=== PATIENT | male | born 1955 | race American Indian/Alaskan Native ===

== ENCOUNTER 2016-05-14 11:41 | Outpatient (CLI) | payer BC ==
--- NOTE | 2016-05-14 14:34 | XRay Report ---
CHEST 2 VIEWS: INDICATION: Dyspnea. COMPARISON: 04/11/2008 FINDINGS: PA and lateral chest radiographs suggest mild exaggerated cardiomediastinal silhouette/possible mild cardiomegaly. Increased perihilar bronchovascular prominence as well, more so on the right and towards the lung base. No dense focal consolidation, large pleural effusions or overt CHF, however. Slight fluid or thickening along the fissures may though be noted. Possible osteopenia and slight thoracic spine degenerative changes. CONCLUSION: Slight cardiomegaly and early cardiopulmonary fluid overload may be correlated for clinically in an appropriate setting. No overt CHF. I phoned the above results to Dr. Cruz, 2:15 PM, 05/14/2016. Thank you for the opportunity to participate in this patient's care.
== END 2016-05-14 11:42 | disposition home or self-care (01) ==
LOC: XRAY 11:41
PROVIDERS: ATTEND Internal Medicine
DX: I51.7 Cardiomegaly (principal); M47.894 Other spondylosis, thoracic region
CPT/HCPCS: 71020

== ENCOUNTER 2019-12-22 06:01 | Day surgery (SDC) | payer BC ==
[2019-12-21 09:48] LABS: Hematocrit 44.3 % (35.5-45.6); Hemoglobin 14.9 gm/dl (11.8-15.2); Mean Corpuscular HGB Conc 34 % (32-34); Mean Corpuscular Volume 93 fl (84-94); Platelet Count 301 K/mm3 (140-440); Red Blood Count 4.75 M/mm3 (3.65-5.03); Red Cell Distribution Width 14.2 % (13.2-15.2)
--- NOTE | 2019-12-21 10:04 | Anesthesia Consultation ---
Anesthesia Consult and Med Hx Date of service: 12/22/19 - Airway Anesthetic Teeth Evaluation: Dentures (full upper and lower) ROM Head & Neck: Adequate Mental/Hyoid Distance: Adequate Mallampati Class: Class III Intubation Access Assessment: Possibly Difficult - Pulmonary Exam CTA: Yes - Cardiac Exam Cardiac Exam: RRR - Pre-Operative Health Status ASA Pre-Surgery Classification: ASA3 Proposed Anesthetic Plan: General - Pulmonary Hx Smoking: Yes (20pk yr hx) Hx Respiratory Symptoms: No Hx Sleep Apnea: No (ISAAK PRE SCREEN HIGH RISK) - Cardiovascular System Hx Hypertension: Yes (well controlled on current regimen) Hx Heart Attack/AMI: No (hx CHF 2yrs ago; >4mets functional status, no signs/symptoms decompensation) Hx Percutaneous Transluminal Coronary Angioplasty (PTCA): No Hx Cardia Arrhythmia: No Hx Pacemaker: No Hx Internal Defibrillator: No - Central Nervous System CVA: No - Gastrointestinal Hx Gastroesophageal Reflux Disease: No - Endocrine Hx Renal Disease: No Hx Liver Disease: No Hx Non-Insulin Dependent Diabetes: Yes (diet controlled) Hx Thyroid Disease: No - Other Systems Hx Substance Use: Yes (THC 2-3 times per week) Hx Cancer: Yes (hx prostate ca) Hx Obesity: No - Additional Comments Anesthesia Medical History Comments: No hx anesthetic complications. Will attempt to retrieve most recent cardiology records from [facility] (last saw mail deliverer 7 months ago) however patient appears clinical compensated on exam today.
[2019-12-21 10:28] LABS: Alanine Aminotransferase 14 units/L (7-56); Albumin 3.5 g/dL (3.9-5); BUN/Creatinine Ratio 6; Blood Urea Nitrogen 8 mg/dL (9-20); Calcium 8.9 mg/dL (8.4-10.2); Hemolysis Index 18
[~2019-12-22 06:01] MED LIST: LACTATED RINGERS 1,000 ML IV SCH; MIDAZOLAM 2 MG/2 ML INJ IV NR
--- NOTE | 2019-12-22 07:21 | Anesthesia Day of Surgery ---
Anesthesia Day of Surgery - Day of Surgery Patient Examined: Yes Patient H&P Reviewed: Yes Patient is NPO: Yes Beta Blockers: Yes
[2019-12-22] MEDS ORDERED: ceFAZolin/STERILE WATER 2 GM/20 ML SYRINGE IV NR (08:35)
[2019-12-22] MEDS ORDERED: LIDOCAINE MPF (2%) 20 MG/1 ML VIAL 5 ML ONE (08:44)
[2019-12-22] MEDS ORDERED: fentaNYL 100 MCG/2 ML INJ ONE (08:44)
[2019-12-22] MEDS ORDERED: dexAMETHasone 20 MG/5 ML VIAL ONE (08:44)
[2019-12-22] MEDS ORDERED: PHENYLEPHRINE/NS 1,000 MCG/10 ML SYRINGE (OR USE) IV ONE (08:44)
[2019-12-22] MEDS ORDERED: GLYCOPYRROLATE 0.4 MG/2 ML INJ ONE (08:44)
[2019-12-22] MEDS ORDERED: ONDANSETRON 4 MG/2 ML INJ ONE (08:44)
[2019-12-22] MEDS ORDERED: propofoL 200 MG/20 ML VIAL IV ONE (08:44)
[2019-12-22] MEDS ORDERED: WATER FOR IRRIG STERILE 2000 ML IR ONE (09:15)
[2019-12-22] MEDS ORDERED: fentaNYL 100 MCG/2 ML INJ IV PRN (09:30)
--- NOTE | 2019-12-22 09:50 | Operative Report ---
PREOPERATIVE DIAGNOSES: Hematuria, previous prostate cancer, artificial sphincter. POSTOPERATIVE DIAGNOSES: Hematuria, previous prostate cancer, artificial sphincter. PROCEDURE: Flexible cystoscopy, bladder biopsy, retrograde, right, attempted left. SURGEON: Aleksey Farias MD. ANESTHESIA: General. FINDINGS: This is a gentleman who has had urinary sphincter for incontinence with prostate cancer for many years. He presented with hematuria. I had not seen him for about 7 years. He has had radiation. He now presents for cystoscopy. DESCRIPTION OF PROCEDURE: The patient was brought to the operating table. Following induction of anesthesia, placed in lithotomy position, prepped and draped in usual sterile fashion. The sphincter was immediately deactivated. There was no urethral discharge. Flexible cystoscopy showed the sphincter to be fully enclosed. There is no erosion. We got past the cuff without difficulty into wide open bladder neck. There were telangiectasias from the radiation, a small erythema, which was biopsied. We tried to do a retrograde with the whistle tip. The dye went up the lower right ureter, but I did not want to push it or damage the ureter or start with wires because I did not want to damage the sphincter. There was clear efflux from each side. The patient tolerated the procedure well. We did not need to leave the catheter. The sphincter was reactivated, brought to recovery room in stable condition. JOB# [id number] DONYA/SORAYA
--- NOTE | 2019-12-22 10:03 | Discharge Summary ---
Short Stay Discharge Plan Activity: other (no straining ) Weight Bearing Status: Full Weight Bearing Diet: low fat, low cholesterol, low salt Special Instructions: other (inc fluids ) Follow up with: DEEP MIR MD [Primary Care Provider] - 7 Days HANNY DUNLAP MD [Staff Physician] - 7 Days Forms: Outpatient Surgery DC Inst.
--- NOTE | 2019-12-22 10:04 | Post Operative Note ---
Date of procedure: 12/22/19 Pre-op diagnosis: hematuria Post-op diagnosis: same Findings: telangiectasia Procedure: cysto bx Anesthesia: GETA Surgeon: HANNY DUNLAP Estimated blood loss: none Pathology: list (bladder) Specimen disposition: to lab Condition: stable Disposition: PACU
--- NOTE | 2019-12-22 10:21 | Post Anesthesia Evaluation ---
- Post Anesthesia Evaluation Patient Participated: Yes Airway Patent: Yes Stable Respiratory Function: Yes Nausea/Vomiting: No Temp > 96.8F: Yes Pain Manageable: Yes Adequeate Hydration: Yes Anesthesia Complications: No
[2019-12-22 10:43] VITALS: BP 119/84
--- NOTE | 2019-12-22 11:23 | Fluoroscopy Report ---
FLUOROSCOPY RETROGRADE UROGRAPHY HISTORY: Hematuria FINDINGS: Fluoroscopy was provided by radiology during retrograde urography by the urologist. The uro logist apparently attempted a right retrograde pyelogram which was unsuccessful. Please correlate wit h the procedural report. Fluoroscopy time: 0.4 minutes Fluoroscopic images: 0 Signer Name: Chava Whitley Jr, MD Signed: 12/22/2019 11:19 AM Workstation Name: [id number]
== END 2019-12-22 11:00 | disposition home or self-care (01) ==
LOC: OR 06:01
PROVIDERS: ATTEND Urology
DX: R31.9 Hematuria, unspecified (principal); Z11.59 Encounter for screening for other viral diseases; E11.9 Type 2 diabetes mellitus without complications; I11.0 Hypertensive heart disease with heart failure; I50.9 Heart failure, unspecified; E78.00 Pure hypercholesterolemia, unspecified; Z98.890 Other specified postprocedural states; Z85.46 Personal history of malignant neoplasm of prostate; Z96.89 Presence of other specified functional implants; Z79.899 Other long term (current) drug therapy; Z79.82 Long term (current) use of aspirin; Z91.041 Radiographic dye allergy status; Z98.52 Vasectomy status; Z86.2 Personal history of diseases of the blood and blood-forming organs and certain disorders involving the immune mechanism
CPT/HCPCS: 36415; 52204; 74420; 80053; 82962; 85027; 88112; 88305; 88342; A4217; C1758; J1100; J2370; J2405; J2704; J3010; J7120; Q9967; U0003

== ENCOUNTER 2020-07-08 18:20 | Emergency (ER) | payer BC ==
[2020-07-08] MEDS ORDERED: SODIUM CHLORIDE 0.9% 500 ML 500 ML IV ONE (18:38)
[2020-07-08] MEDS ORDERED: SODIUM CHLORIDE 0.9% 1000 ML 1,000 ML IV ONE ×2 (18:53→20:25)
--- NOTE | 2020-07-08 18:53 | Emergency Department Report ---
ED Syncope HPI - General Chief Complaint: Syncope Stated Complaint: LOW BLOOD PRESSURE Time Seen by Provider: 07/08/20 18:29 Source: patient, family ( Mrs. Hinton per phone), EMS, old records Exam Limitations: no limitations - History of Present Illness Initial Comments: Chief complaint "I passed out twice." HPI: This is a 65-year-old male with history of hypertension, diet-controlled diabetes mellitus, CHF, prostate cancer in remission status post radiation/TURP who presents with syncope. On Thursday patient ate black beans which was delivered to his home. On Thursday he developed cramping in vomiting. These vomiting cramping of the abdomen did not resolve until Thursday. He felt much better. Today he took his blood pressure medication. He drinks wine. He smoke s marijuana. He felt sweaty and dizzy on 2 occasions. On the both instances he had brief loss of consciousness. 2 syncopal episodes. Upon EMS arrival, blood pressure was low. His is a nurse. He and his both feel that he has been dehydrated from food poisoning. Likely from the food delivery on Thursday. He denies any preceding chest pain, palpitations. He takes several hypertensive medications. He does not take anticoagulation. No history of heart attack. Patient stated that passing out episode happened once before when he took his new blood pressure medication. Patient states that this time that he feels much better after receiving IV fluid. I reviewed electronic medical record. Patient was admitted in 2013 for syncope. Echocardiogram obtained August 07, 2013: Findings at that time trace mitral regurgitation, mild concentric LVH, systolic function normal, ejection fraction 55 to 60%, abnormal left ventricular diastolic filling Timing/Prior Episodes: remote history Precipitating Factors: Positive: lightheadedness Context: standing Loss of Consciousness: brief (seconds) Current Symptoms: back to normal - Related Data Allergies/Adverse Reactions: Allergies Iodinated Contrast Media Allergy (Verified 12/16/19 09:38) Itching Home Medications: Ambulatory Orders Aspirin [Adult Aspirin] 81 mg PO DAILY 12/16/19 AtorvaSTATin [Lipitor] 40 mg PO QHS 12/16/19 Docusate Sodium [Colace] 100 mg PO BID 12/16/19 Furosemide [Lasix TAB] 40 mg PO QDAY 12/16/19 Hydralazine HCl 50 mg PO DAILY 12/16/19 Losartan [Cozaar] 100 mg PO QDAY 12/16/19 Potassium Citrate [Potassium Citrate ER] 20 meq PO DAILY 12/16/19 amLODIPine 10 mg PO DAILY 12/16/19 carvediloL [Coreg] 25 mg PO BID 12/16/19 Ondansetron [Zofran Odt] 4 mg PO Q8HR PRN #10 tab.rapdis 07/08/20 ED Review of Systems ROS: Stated complaint: LOW BLOOD PRESSURE Other details as noted in HPI Comment: All other systems reviewed and negative Constitutional: denies: fever, malaise Respiratory: denies: cough, shortness of breath Cardiovascular: denies: chest pain, palpitations Gastrointestinal: nausea, vomiting ED Past Medical Hx - Past Medical History Previous Medical History?: Yes Hx Hypertension: Yes (well controlled on current regimen) Hx Heart Attack/AMI: No (hx CHF 2yrs ago; >4mets functional status, no signs/symptoms decompensation) Hx Congestive Heart Failure: Yes (NOT RECENT) Hx Diabetes: Yes (NO MEDS- DIET CONTROLLED) Hx Liver Disease: No Hx Renal Disease: No Hx Tuberculosis: Yes (POSITIVE SKIN TEST.TOOK TX, NEG CXR -21 YRS AGO) Hx HIV: No - Surgical History Past Surgical History?: Yes Hx Pacemaker: No Hx Internal Defibrillator: No Additional Surgical History: Prostectomy, inguinal hernia repair X3 - Social History Smoking Status: Current Every Day Smoker Substance Use Type: Alcohol, Marijuana - Medications Home Medications: Home Medications Medication Instructions Recorded Confirmed Last Taken Type Aspirin [Adult Aspirin] 81 mg PO DAILY 12/16/19 12/22/19 12/15/19 09:00 History AtorvaSTATin [Lipitor] 40 mg PO QHS 12/16/19 12/22/19 12/21/19 20:00 History Docusate Sodium [Colace] 100 mg PO BID 12/16/19 12/22/19 12/21/19 18:00 History Furosemide [Lasix TAB] 40 mg PO QDAY 12/16/19 12/22/19 12/21/19 09:00 History Hydralazine HCl 50 mg PO DAILY 12/16/19 12/22/19 12/22/19 05:00 History Losartan [Cozaar] 100 mg PO QDAY 12/16/19 12/22/19 12/22/19 05:00 History Potassium Citrate [Potassium 20 meq PO DAILY 12/16/19 12/16/19 Unknown History Citrate ER] amLODIPine 10 mg PO DAILY 12/16/19 12/22/19 12/22/19 05:00 History carvediloL [Coreg] 25 mg PO BID 12/16/19 12/22/19 12/22/19 05:00 History Ondansetron [Zofran Odt] 4 mg PO Q8HR PRN #10 tab.rapdis 07/08/20 Unknown Rx ED Physical Exam - General Limitations: No Limitations General appearance: alert, in no apparent distress, other (Appears well, appears comfortable, nontoxic) - Head Head exam: Present: atraumatic, normocephalic - Eye Eye exam: Present: normal appearance - ENT ENT exam: Present: mucous membranes moist - Neck Neck exam: Present: normal inspection, full ROM - Respiratory Respiratory exam: Present: normal lung sounds bilaterally. Absent: respiratory distress, wheezes, rales, stridor - Cardiovascular Cardiovascular Exam: Present: regular rate, normal rhythm, normal heart sounds. Absent: systolic murmur, diastolic murmur, rubs, gallop - GI/Abdominal GI/Abdominal exam: Present: soft, normal bowel sounds. Absent: distended, tenderness - Rectal Rectal exam: Present: deferred - Extremities Exam Extremities exam: Present: normal inspection - Back Exam Back exam: Present: normal inspection - Neurological Exam Neurological exam: Present: alert, oriented X3 - Psychiatric Psychiatric exam: Present: normal affect, normal mood - Skin Skin exam: Present: warm, dry, intact, normal color. Absent: rash ED Course Vital Signs 07/08/20 07/08/20 07/08/20 18:30 18:35 18:36 Temperature 97.5 F L 97.5 F L Pulse Rate 75 75 Respiratory 16 17 17 Rate Blood Pressure 130/95 Blood Pressure 130/95 [Right] O2 Sat by Pulse 97 97 97 Oximetry 07/08/20 07/08/20 19:00 19:30 Temperature Pulse Rate 68 67 Respiratory 12 16 Rate Blood Pressure Blood Pressure 135/87 127/81 [Right] O2 Sat by Pulse 99 98 Oximetry ED Medical Decision Making - Lab Data Result diagrams: 07/08/20 18:58 07/08/20 18:58 - EKG Data -: EKG Interpreted by Me EKG shows normal: sinus rhythm, axis, intervals, QRS complexes Rate: normal - EKG Data When compared to previous EKG there are: other (No previous EKG available) Interpretation: nonspecific ST-T wave donny 07/08/20 18:54 EKG obtained 1846 EKG interpreted by me Normal sinus rhythm rate 60 bpm normal axis normal intervals no ST elevation nonspecific T wave pattern QS complexes in anterior leads - Medical Decision Making 1. Food poisoning: Nausea vomiting preceding cause dehydration 2. Hypotension: Once patient felt much better after recovering from food poisoning, iatrogenic hypotension occurred with antihypertensive medications. Patient was given IV fluid therapy per EMS and here in the emergency department. 3. Syncope due to hypotension: Hypotension observed upon EMS arrival. I do not suspect lethal forms of syncope such as arrhythmia, pulmonary embolism or cardiac structural abnormality. Patient was observed cardiac monitoring for 4 hour duration without arrhythmia. According to [facility] syncope rules, normally patient over the age of 55 with history of CHF overnight cardiac monitoring is warranted. However with clinical do shared decision making with patient , I agree that patient is appropriate for discharge. Patient did not want to be admitted. Considering that we have an obvious cause for syncopal episodes, also agrees that home observation is appropriate 4. Acute on chronic kidney injury: Creatinine has ranged from 1.2-1.8 over the past several years according to electronic medical record. Creatinine 1.9 today. In December creatinine 1.2. Critical care attestation.: If time is entered above; I have spent that time in minutes in the direct care of this critically ill patient, excluding procedure time. ED Disposition Clinical Impression: Hypotension, Food poisoning, Syncope, [id number] kidney injury Disposition: DC-01 TO HOME OR SELFCARE Is pt being admited?: No Does the pt Need Aspirin: No Condition: Stable Instructions: Hypotension, [id number], Syncope, [id number], Food Poisoning, [id number], Syncope (ED) Prescriptions: Ondansetron [Zofran Odt] 4 mg PO Q8HR PRN #10 tab.rapdis PRN Reason: Nausea
[2020-07-08 19:25] LABS: Basophils # (Auto) 0.1 K/mm3 (0.0-0.1); Basophils % (Auto) 0.6 % (0.0-1.8); Eosinophils # (Auto) 0.1 K/mm3 (0.0-0.4); Eosinophils % (Auto) 1.2 % (0.0-4.3); Hematocrit 45.8 % (35.5-45.6); Hemoglobin 15.5 gm/dl (11.8-15.2); Lymphocytes # (Auto) 1.7 K/mm3 (1.2-5.4); Lymphocytes % (Auto) 19.4 % (13.4-35.0); Mean Corpuscular HGB Conc 34 % (32-34); Mean Corpuscular Volume 94 fl (84-94); Monocytes # (Auto) 1.2 K/mm3 (0.0-0.8); Monocytes % (Auto) 12.8 % (0.0-7.3); Platelet Count 324 K/mm3 (140-440); Red Blood Count 4.86 M/mm3 (3.65-5.03); Red Cell Distribution Width 14.4 % (13.2-15.2)
[2020-07-08 19:34] LABS: Albumin 3.3 g/dL (3.9-5); Calcium 8.2 mg/dL (8.4-10.2)
[2020-07-08 22:42] VITALS: BP 128/83
== END 2020-07-08 20:35 | disposition home or self-care (01) ==
LOC: ED 18:20
DX: I95.9 Hypotension, unspecified (principal); R55 Syncope and collapse; N17.9 Acute kidney failure, unspecified; A05.9 Bacterial foodborne intoxication, unspecified; I11.0 Hypertensive heart disease with heart failure; I50.9 Heart failure, unspecified; E11.9 Type 2 diabetes mellitus without complications; F17.200 Nicotine dependence, unspecified, uncomplicated; F12.10 Cannabis abuse, uncomplicated; Z98.890 Other specified postprocedural states; Z79.899 Other long term (current) drug therapy; Z88.8 Allergy status to other drugs, medicaments and biological substances
CPT/HCPCS: 36415; 80053; 85025; 93005; 99284; J7030